=== PATIENT | female | born 1960 | race Caucasian/White ===

== ENCOUNTER → 2016-09-04 | Outpatient (REF) ==
[~2016-09-04] MED LIST: ASPIRIN 81M81 MG/TA2 PO; BACITRACIN TOPIC1 TU TOP; CARDIZEM CD240 MG PO; CELEXA 20MG20 MG/TAB PO; COLACE 100100 MG/CAP PO; DOXYCYCLINE 10100 MG PO; DULCOLAX S10 MG/SUPP RC; EFFEXOR 50M50 MG/TAB PO; FERRO-TIME325 MG PO; FERROUS SU325 MG/TAB PO; FORTAMET1000 MG PO; GLUCOPHAGE500 MG/TAB PO; HCTZ 25MG TAB25 MG; LIPITOR 10MG10 MG PO; MAG-OX 400400 MG/TAB PO; MIRALAX PA17 GM/Dose PO; NOVLOG SQ; ONGLYZA5 MG PO; PERCOCET 325 MG1 TA2 PO; PLAVIX 75MG TAB75 MG PO; PROZAC 10MG10 MG PO; TIAZAC240 MG PO; TOPROL XL 50MG50 MG PO; TYLENOL 325MG325 MG PO; ULTRAM 50MG TAB50 MG PO; WELLBUTRIN 100100 MG PO; WELLBUTRIN SR150 M1 PO; ZESTRIL 10MG10 MG PO; ZOFRAN 4MG T4 MG/TAB PO
== END ==
LOC: ZLAB.WCH 14:52
DX: Z01.89 Encounter for other specified special examinations (principal)

== ENCOUNTER → 2016-09-19 | Outpatient (REF) | LOC: ZLAB.WCH 10:40 | DX: Z01.89 Encounter for other specified special examinations (principal) ==

== ENCOUNTER → 2017-08-13 | Outpatient (REF) | LOC: ZLAB.WCH 18:18 | DX: Z01.89 Encounter for other specified special examinations (principal) ==